=== PATIENT | female | born 1955 | race African-American/Black ===

== ENCOUNTER 2018-02-11 18:10 | Inpatient (IN) | payer MEDICARE, OTHER ==
[~2018-02-11] VITALS: Ht 154.9 cm; Wt 74.4 kg
[~2018-02-11 18:10] MED LIST: AMLO10TA55 PO; ASPI-556 PO; CARV12.530 PO; CHOL10002 PO; GLIM4 PO; HYDR12.530 PO; LISI40TA4 PO; METF1000 PO
[2018-02-11 18:30] VITALS: BP 157/90
[2018-02-11] MEDS ORDERED: DOCUSATE SODIUM 283 MG/5 ML MINI-ENEMA PR PRN (19:15)
[2018-02-11] MEDS ORDERED: DEXTROSE 50%-WATER 25 GM/50 ML SYRINGE IVP PRN (19:15)
[2018-02-11] MEDS ORDERED: HydrOXYzine HCL 25 MG TABLET PO PRN (19:15)
[2018-02-11] MEDS: METOPROLOL SUCCINATE 50 MG ER TABLET PO SCH (21:50)
[2018-02-11] MEDS: FAMOTIDINE 20 MG TABLET PO SCH (21:51)
[2018-02-11] MEDS: SENNA 187 MG TABLET PO SCH (21:51)
[2018-02-11] MEDS: GABAPENTIN 300 MG CAPSULE PO SCH (21:51)
[2018-02-11] MEDS: DOCUSATE SODIUM 100 MG CAPSULE PO SCH (21:51)
[2018-02-11] MEDS: INSULIN LISPRO 100 UNITS/ML SQ PRN (21:53)
[2018-02-11] MEDS: ACETAMINOPHEN 325 MG TABLET PO PRN (22:19)
[2018-02-11 22:59] LABS: GLUCOMETER DEV NAME(LOC) 2WR 2E; GLUCOSE,POINT OF CARE 238 MG/DL (70-110)
[2018-02-12] VITALS: BP 129/79
[2018-02-12 06:25] LABS: GLUCOMETER DEV NAME(LOC) 2WR 2E; GLUCOSE,POINT OF CARE 189 MG/DL (70-110)
[2018-02-12] MEDS: GlipiZIDE 10 MG TABLET PO SCH ×4 (06:41→17:51)
[2018-02-12 07:11] LABS: BASOPHILS % (AUTO) 0.4 % (0.0-2.0); EOSINOPHILS % (AUTO) 2.5 % (1.0-6.0); HEMOGLOBIN 15.4 g/dL (12.0-16.0); LYMPHOCYTES # (AUTO) 3.9 K/uL (1.0-4.8); LYMPHOCYTES % (AUTO) 39.6 % (22.0-44.0); MEAN CORPUSCULAR HEMOGLOBIN 32.1 pg (26.0-34.0); MEAN CORPUSCULAR HGB CONC 35.9 G/dL (31.0-37.0); MEAN CORPUSCULAR VOLUME 89 fL (80-100); MONOCYTES # (AUTO) 0.6 K/uL (0.1-1.0); MONOCYTES % (AUTO) 6.1 % (2.0-9.0); NEUTROPHILS # (AUTO) 5.1 K/uL (1.8-7.7); NEUTROPHILS % (AUTO) 51.4 % (40.0-70.0); PLATELET COUNT (AUTO) 284 K/uL (150-450); RED BLOOD CELL COUNT(AUTO) 4.81 MIL/uL (4.00-5.20); RED CELL DISTRIBUTION WIDTH 12.5 % (11.5-14.5)
[2018-02-12 07:37] LABS: ALANINE AMINOTRANSFERASE 27 U/L (12-78); ALBUMIN 3.2 g/dL (3.4-5.0); ALKALINE PHOSPHATASE 115 U/L (46-116); ANION GAP 6 mmol/L (8-16); ASPARTATE AMINOTRANSFERASE 39 U/L (15-37); BILIRUBIN,TOTAL 0.7 mg/dL (0.1-1.0); CARBON DIOXIDE 33 mmol/L (22-29); CHLORIDE 100 mmol/L (98-107); CREATININE 0.94 mg/dL (0.60-1.30); GLOMERULAR FILTR. RATE CALC > 60 mL/min (>60); GLUCOSE,RANDOM 190 mg/dL (70-110); POTASSIUM 3.3 mmol/L (3.5-5.1); SODIUM SERUM 139 mmol/L (136-145); TOTAL PROTEIN, SERUM 7.3 g/dL (6.4-8.2); UREA NITROGEN, BLOOD 20 mg/dL (7-18)
[2018-02-12 07:45] VITALS: BP 154/89
[2018-02-12] MEDS: FAMOTIDINE 20 MG TABLET PO SCH ×2 (08:43→20:27)
[2018-02-12] MEDS: DOCUSATE SODIUM 100 MG CAPSULE PO SCH ×2 (08:43→20:27)
[2018-02-12] MEDS: AmLODIPine BESYLATE 10 MG TABLET PO SCH (08:44)
[2018-02-12] MEDS: LOSARTAN POTASSIUM 50 MG TABLET PO SCH (08:44)
[2018-02-12] MEDS: METOPROLOL SUCCINATE 50 MG ER TABLET PO SCH ×2 (08:44→20:27)
[2018-02-12] MEDS: INSULIN LISPRO 100 UNITS/ML SQ PRN ×4 (08:46→21:43)
[2018-02-12] MEDS: HYDROCHLOROTHIAZIDE 25 MG TABLET PO SCH (08:46)
[2018-02-12] MEDS: CALCIUM OYSTER SHELL 250 MG-VIT D3 125 UNITS TABLET PO SCH (08:46)
[2018-02-12 11:15] LABS: APPEARANCE,URINE CLEAR (CLEAR); BILIRUBIN,URINE NEGATIVE (NEGATIVE); GLUCOSE, URINE (UA) NEGATIVE (NEGATIVE); KETONES,URINE NEGATIVE (NEGATIVE); LEUKOCYTE ESTERASE ,URINE NEGATIVE (NEGATIVE); NITRATE,URINE NEGATIVE (NEGATIVE); OCCULT BLOOD,URINE NEGATIVE (NEGATIVE); PROTEIN,URINE NEGATIVE (NEGATIVE); UROBILINOGEN,URINE 0.2 mg/dL (<=1.0)
[2018-02-12 11:58] LABS: GLUCOMETER DEV NAME(LOC) 2WR 1C; GLUCOSE,POINT OF CARE 313 MG/DL (70-110)
[2018-02-12 12:41] VITALS: BP 139/89
[2018-02-12] MEDS ORDERED: POTASSIUM CHLORIDE 10% 40 MEQ/30 ML LIQUID UDCUP PO ONE (13:00)
[2018-02-12] MEDS ORDERED: POTASSIUM CHLORIDE 20 MEQ ER TABLET PO ONE ×2 (13:00→21:00)
[2018-02-12 15:13] VITALS: BP 125/74
[2018-02-12] MEDS: INSULIN LISPRO 100 UNITS/ML SQ SCH (17:52)
[2018-02-12 19:03] LABS: GLUCOMETER DEV NAME(LOC) 2WR 1C; GLUCOSE,POINT OF CARE 248 MG/DL (70-110)
[2018-02-12 20:17] VITALS: BP 156/95
[2018-02-12] MEDS: FLUTICASONE PROPIONATE 50 MCG/SPRAY 16 GM NASAL SPRAY NASAL SCH (20:27)
[2018-02-12] MEDS: GABAPENTIN 300 MG CAPSULE PO SCH (20:27)
[2018-02-12] MEDS: ATORVASTATIN CALCIUM 10 MG TABLET PO SCH (20:27)
[2018-02-12] MEDS: SENNA 187 MG TABLET PO SCH (20:27)
[2018-02-12 22:43] LABS: GLUCOMETER DEV NAME(LOC) 2WR 1C; GLUCOSE,POINT OF CARE 240 MG/DL (70-110)
[2018-02-13 00:18] VITALS: BP 156/83
[2018-02-13 06:28] LABS: GLUCOMETER DEV NAME(LOC) 2WR 1C; GLUCOSE,POINT OF CARE 186 MG/DL (70-110)
[2018-02-13 06:47] LABS: ANION GAP 5 mmol/L (8-16); CALCIUM, TOTAL 9.8 mg/dL (8.8-10.5); CARBON DIOXIDE 33 mmol/L (22-29); CHLORIDE 99 mmol/L (98-107); GLOMERULAR FILTR. RATE CALC > 60 mL/min (>60); POTASSIUM 3.5 mmol/L (3.5-5.1); SODIUM SERUM 137 mmol/L (136-145); UREA NITROGEN, BLOOD 18 mg/dL (7-18)
[2018-02-13 06:54] LABS: GLUCOSE,RANDOM 183 mg/dL (70-110)
[2018-02-13 07:46] VITALS: BP 140/90
[2018-02-13] MEDS: FLUTICASONE PROPIONATE 50 MCG/SPRAY 16 GM NASAL SPRAY NASAL SCH ×2 (08:04→20:08)
[2018-02-13] MEDS: CALCIUM OYSTER SHELL 250 MG-VIT D3 125 UNITS TABLET PO SCH (08:05)
[2018-02-13] MEDS: METOPROLOL SUCCINATE 50 MG ER TABLET PO SCH ×2 (08:05→20:09)
[2018-02-13] MEDS: AmLODIPine BESYLATE 10 MG TABLET PO SCH (08:06)
[2018-02-13] MEDS: GlipiZIDE 10 MG TABLET PO SCH (08:07)
[2018-02-13] MEDS: LOSARTAN POTASSIUM 50 MG TABLET PO SCH (08:07)
[2018-02-13] MEDS: FAMOTIDINE 20 MG TABLET PO SCH ×2 (08:07→20:08)
[2018-02-13] MEDS: POTASSIUM CHLORIDE 20 MEQ ER TABLET PO SCH (08:07)
[2018-02-13] MEDS: HYDROCHLOROTHIAZIDE 25 MG TABLET PO SCH (08:08)
[2018-02-13] MEDS: DOCUSATE SODIUM 100 MG CAPSULE PO SCH ×2 (08:13→20:08)
[2018-02-13] MEDS: INSULIN LISPRO 100 UNITS/ML SQ SCH ×3 (08:17→17:58)
[2018-02-13] MEDS: INSULIN LISPRO 100 UNITS/ML SQ PRN ×3 (08:18→20:15)
[2018-02-13 12:29] LABS: GLUCOMETER DEV NAME(LOC) 2WR 1C; GLUCOSE,POINT OF CARE 293 MG/DL (70-110)
[2018-02-13 15:27] VITALS: BP 116/62
[2018-02-13 17:34] LABS: GLUCOMETER DEV NAME(LOC) 2WR 2E; GLUCOSE,POINT OF CARE 121 MG/DL (70-110)
[2018-02-13 20:05] VITALS: BP 135/70
[2018-02-13] MEDS: SENNA 187 MG TABLET PO SCH (20:08)
[2018-02-13] MEDS: GABAPENTIN 300 MG CAPSULE PO SCH (20:08)
[2018-02-13] MEDS: ATORVASTATIN CALCIUM 10 MG TABLET PO SCH (20:08)
[2018-02-13] MEDS ORDERED: INSULIN GLARGINE,HUM.REC.ANLOG 100 UNITS/ML SQ SCH (21:00)
[2018-02-13 21:08] LABS: GLUCOMETER DEV NAME(LOC) 2WR 2E; GLUCOSE,POINT OF CARE 180 MG/DL (70-110)
[2018-02-13] MEDS: ACETAMINOPHEN 325 MG TABLET PO PRN (21:36)
[2018-02-14 04:00] VITALS: BP 126/72
[2018-02-14 05:53] LABS: GLUCOMETER DEV NAME(LOC) 2WR 2E; GLUCOSE,POINT OF CARE 184 MG/DL (70-110)
[2018-02-14 08:00] VITALS: BP 138/84
[2018-02-14] MEDS: FLUTICASONE PROPIONATE 50 MCG/SPRAY 16 GM NASAL SPRAY NASAL SCH ×2 (08:09→20:07)
[2018-02-14] MEDS: AmLODIPine BESYLATE 10 MG TABLET PO SCH (08:10)
[2018-02-14] MEDS: LOSARTAN POTASSIUM 50 MG TABLET PO SCH (08:10)
[2018-02-14] MEDS: DOCUSATE SODIUM 100 MG CAPSULE PO SCH ×2 (08:10→20:07)
[2018-02-14] MEDS: HYDROCHLOROTHIAZIDE 25 MG TABLET PO SCH (08:10)
[2018-02-14] MEDS: POTASSIUM CHLORIDE 20 MEQ ER TABLET PO SCH (08:11)
[2018-02-14] MEDS: METOPROLOL SUCCINATE 50 MG ER TABLET PO SCH ×2 (08:11→20:07)
[2018-02-14] MEDS: CALCIUM OYSTER SHELL 250 MG-VIT D3 125 UNITS TABLET PO SCH (08:11)
[2018-02-14] MEDS: INSULIN LISPRO 100 UNITS/ML SQ SCH ×3 (08:15→18:18)
[2018-02-14] MEDS: INSULIN LISPRO 100 UNITS/ML SQ PRN ×3 (08:16→18:20)
[2018-02-14] MEDS: FAMOTIDINE 20 MG TABLET PO SCH ×2 (08:16→20:07)
[2018-02-14 12:48] LABS: GLUCOMETER DEV NAME(LOC) 2WR 1C; GLUCOSE,POINT OF CARE 206 MG/DL (70-110)
[2018-02-14 15:09] VITALS: BP 128/84
[2018-02-14 17:53] LABS: GLUCOMETER DEV NAME(LOC) 2WR 2E; GLUCOSE,POINT OF CARE 152 MG/DL (70-110)
[2018-02-14 20:07] VITALS: BP 154/81
[2018-02-14] MEDS: GABAPENTIN 300 MG CAPSULE PO SCH (20:07)
[2018-02-14] MEDS: ATORVASTATIN CALCIUM 10 MG TABLET PO SCH (20:07)
[2018-02-14] MEDS: SENNA 187 MG TABLET PO SCH (20:07)
[2018-02-14] MEDS: ACETAMINOPHEN 325 MG TABLET PO PRN (20:07)
[2018-02-14] MEDS: INSULIN GLARGINE,HUM.REC.ANLOG 100 UNITS/ML SQ SCH (21:37)
[2018-02-14 21:58] LABS: GLUCOMETER DEV NAME(LOC) 2WR 2E; GLUCOSE,POINT OF CARE 129 MG/DL (70-110)
[2018-02-14 22:07] VITALS: BP 154/87
[2018-02-15] VITALS: BP 138/74
[2018-02-15 05:53] LABS: GLUCOMETER DEV NAME(LOC) 2WR 2E; GLUCOSE,POINT OF CARE 195 MG/DL (70-110)
[2018-02-15] MEDS ORDERED: HYD25 PO (06:51)
[2018-02-15] MEDS ORDERED: AMLO10TA55 PO (06:51)
[2018-02-15] MEDS ORDERED: CALC-1220 PO (06:51)
[2018-02-15] MEDS ORDERED: LOSA1TAB37 PO (06:51)
[2018-02-15] MEDS ORDERED: METO50 PO (06:51)
[2018-02-15] MEDS ORDERED: GLIP10 PO (06:51)
[2018-02-15] MEDS ORDERED: ASPI1CPM6 PO (06:51)
[2018-02-15] MEDS ORDERED: SIMV-260 PO (06:51)
[2018-02-15 07:45] VITALS: BP 129/79
[2018-02-15] MEDS: FLUTICASONE PROPIONATE 50 MCG/SPRAY 16 GM NASAL SPRAY NASAL SCH ×2 (08:18→22:15)
[2018-02-15] MEDS: DOCUSATE SODIUM 100 MG CAPSULE PO SCH ×2 (08:19→21:00)
[2018-02-15] MEDS: AmLODIPine BESYLATE 10 MG TABLET PO SCH (08:19)
[2018-02-15] MEDS: HYDROCHLOROTHIAZIDE 25 MG TABLET PO SCH (08:19)
[2018-02-15] MEDS: POTASSIUM CHLORIDE 20 MEQ ER TABLET PO SCH (08:19)
[2018-02-15] MEDS: LOSARTAN POTASSIUM 50 MG TABLET PO SCH (08:19)
[2018-02-15] MEDS: CALCIUM OYSTER SHELL 250 MG-VIT D3 125 UNITS TABLET PO SCH (08:19)
[2018-02-15] MEDS: FAMOTIDINE 20 MG TABLET PO SCH ×2 (08:20→22:15)
[2018-02-15] MEDS: METOPROLOL SUCCINATE 50 MG ER TABLET PO SCH ×2 (08:20→22:15)
[2018-02-15] MEDS: INSULIN LISPRO 100 UNITS/ML SQ SCH ×3 (08:23→17:00)
[2018-02-15] MEDS: INSULIN LISPRO 100 UNITS/ML SQ PRN ×3 (08:23→22:17)
[2018-02-15 13:33] LABS: GLUCOMETER DEV NAME(LOC) 2WR 2E; GLUCOSE,POINT OF CARE 249 MG/DL (70-110)
[2018-02-15 16:01] VITALS: BP 134/76
[2018-02-15] MEDS ORDERED: LORazepam 2 MG/ML VIAL IM ONE (16:45)
[2018-02-15] MEDS ORDERED: LORazepam 2 MG/ML VIAL IM PRN (16:45)
[2018-02-15] MEDS ORDERED: LORazepam 2 MG/ML VIAL ONE (16:46)
[2018-02-15 17:58] LABS: GLUCOMETER DEV NAME(LOC) 2WR 2E; GLUCOSE,POINT OF CARE 172 MG/DL (70-110)
[2018-02-15] MEDS: SENNA 187 MG TABLET PO SCH (21:00)
[2018-02-15 22:09] VITALS: BP 148/59
[2018-02-15] MEDS: GABAPENTIN 300 MG CAPSULE PO SCH (22:15)
[2018-02-15] MEDS: ATORVASTATIN CALCIUM 10 MG TABLET PO SCH (22:15)
[2018-02-15] MEDS: INSULIN GLARGINE,HUM.REC.ANLOG 100 UNITS/ML SQ SCH (22:17)
[2018-02-15 23:28] LABS: GLUCOMETER DEV NAME(LOC) 2WR 1C; GLUCOSE,POINT OF CARE 240 MG/DL (70-110)
[2018-02-16] MEDS ORDERED: LORazepam 2 MG/ML VIAL IM PRN (00:45)
[2018-02-16 06:20] VITALS: BP 139/84
[2018-02-16 06:53] LABS: GLUCOMETER DEV NAME(LOC) 2WR 1C; GLUCOSE,POINT OF CARE 184 MG/DL (70-110)
[2018-02-16 09:45] VITALS: BP 153/97
[2018-02-16] MEDS: FLUTICASONE PROPIONATE 50 MCG/SPRAY 16 GM NASAL SPRAY NASAL SCH ×2 (09:51→20:55)
[2018-02-16] MEDS: CALCIUM OYSTER SHELL 250 MG-VIT D3 125 UNITS TABLET PO SCH (09:51)
[2018-02-16] MEDS: AmLODIPine BESYLATE 10 MG TABLET PO SCH (09:51)
[2018-02-16] MEDS: FAMOTIDINE 20 MG TABLET PO SCH ×2 (09:51→20:56)
[2018-02-16] MEDS: DOCUSATE SODIUM 100 MG CAPSULE PO SCH ×2 (09:51→20:55)
[2018-02-16] MEDS: HYDROCHLOROTHIAZIDE 25 MG TABLET PO SCH (09:51)
[2018-02-16] MEDS: POTASSIUM CHLORIDE 20 MEQ ER TABLET PO SCH (09:51)
[2018-02-16] MEDS: METOPROLOL SUCCINATE 50 MG ER TABLET PO SCH ×2 (09:52→20:55)
[2018-02-16] MEDS: LOSARTAN POTASSIUM 50 MG TABLET PO SCH (09:52)
[2018-02-16] MEDS: INSULIN LISPRO 100 UNITS/ML SQ SCH ×3 (09:54→17:42)
[2018-02-16] MEDS: INSULIN LISPRO 100 UNITS/ML SQ PRN ×4 (09:55→21:08)
[2018-02-16 13:03] LABS: GLUCOMETER DEV NAME(LOC) 2WR 2E; GLUCOSE,POINT OF CARE 226 MG/DL (70-110)
[2018-02-16] MEDS: ACETAMINOPHEN 325 MG TABLET PO PRN (13:21)
[2018-02-16 15:15] VITALS: BP 140/83
[2018-02-16 20:46] VITALS: BP 157/83
[2018-02-16] MEDS: GABAPENTIN 300 MG CAPSULE PO SCH (20:55)
[2018-02-16] MEDS: SENNA 187 MG TABLET PO SCH (20:55)
[2018-02-16] MEDS: ATORVASTATIN CALCIUM 10 MG TABLET PO SCH (20:55)
[2018-02-16] MEDS ORDERED: INSULIN GLARGINE,HUM.REC.ANLOG 100 UNITS/ML SQ SCH (21:00)
[2018-02-16] MEDS ORDERED: MELATONIN 3 MG TABLET PO SCH (21:00)
[2018-02-16 22:33] LABS: GLUCOMETER DEV NAME(LOC) 2WR 2E; GLUCOSE,POINT OF CARE 148 MG/DL (70-110)
[2018-02-16 22:33] LABS: GLUCOMETER DEV NAME(LOC) 2WR 2E; GLUCOSE,POINT OF CARE 247 MG/DL (70-110)
[2018-02-17 00:37] VITALS: BP 148/81
[2018-02-17 08:01] VITALS: BP 154/89
[2018-02-17] MEDS: FLUTICASONE PROPIONATE 50 MCG/SPRAY 16 GM NASAL SPRAY NASAL SCH (09:04)
[2018-02-17] MEDS: DOCUSATE SODIUM 100 MG CAPSULE PO SCH (09:04)
[2018-02-17] MEDS: METOPROLOL SUCCINATE 50 MG ER TABLET PO SCH (09:04)
[2018-02-17] MEDS: HYDROCHLOROTHIAZIDE 25 MG TABLET PO SCH (09:05)
[2018-02-17] MEDS: FAMOTIDINE 20 MG TABLET PO SCH (09:05)
[2018-02-17] MEDS: LOSARTAN POTASSIUM 50 MG TABLET PO SCH (09:05)
[2018-02-17] MEDS: CALCIUM OYSTER SHELL 250 MG-VIT D3 125 UNITS TABLET PO SCH (09:05)
[2018-02-17] MEDS: AmLODIPine BESYLATE 10 MG TABLET PO SCH (09:05)
[2018-02-17] MEDS: POTASSIUM CHLORIDE 20 MEQ ER TABLET PO SCH (09:07)
[2018-02-17] MEDS: INSULIN LISPRO 100 UNITS/ML SQ SCH ×2 (09:08→13:40)
[2018-02-17] MEDS: INSULIN LISPRO 100 UNITS/ML SQ PRN (09:09)
[2018-02-17] MEDS ORDERED: FLUT16H NASAL (12:00)
[2018-02-17] MEDS ORDERED: DSS100 PO (12:01)
[2018-02-17] MEDS ORDERED: LOSA50TA25 PO (12:02)
[2018-02-17] MEDS ORDERED: KDUR20 PO (12:02)
[2018-02-17] MEDS ORDERED: AMLO-512 PO (12:03)
[2018-02-17] MEDS ORDERED: HYDR25TA PO (12:04)
[2018-02-17] MEDS ORDERED: OSCD250 PO (12:05)
[2018-02-17] MEDS ORDERED: FAMO20 PO (12:29)
[2018-02-17] MEDS ORDERED: MELA3TAB PO (12:34)
[2018-02-17] MEDS ORDERED: GABA-531 PO (12:35)
[2018-02-17] MEDS ORDERED: INSLAN SQ (12:36)
[2018-02-17] MEDS ORDERED: ATOR10TA84 PO (12:36)
[2018-02-17] MEDS ORDERED: INSU100V SQ ×2 (12:37→12:38)
[2018-02-17 13:33] LABS: GLUCOMETER DEV NAME(LOC) 2WR 1C; GLUCOSE,POINT OF CARE 220 MG/DL (70-110)
== END 2018-02-17 13:25 | disposition home health service (06) | DRG 65 ==
LOC: 2WR 18:10
DX: I61.1 Nontraumatic intracerebral hemorrhage in hemisphere, cortical (principal); I16.1 Hypertensive emergency; E11.9 Type 2 diabetes mellitus without complications; E66.9 Obesity, unspecified; I10 Essential (primary) hypertension; Z90.49 Acquired absence of other specified parts of digestive tract; Z91.14 Patient's other noncompliance with medication regimen; Z68.31 Body mass index [BMI] 31.0-31.9, adult; Z79.4 Long term (current) use of insulin; Z91.81 History of falling; R26.2 Difficulty in walking, not elsewhere classified; I69.118 Other symptoms and signs involving cognitive functions following nontraumatic intracerebral hemorrhage; I69.128 Other speech and language deficits following nontraumatic intracerebral hemorrhage; H53.2 Diplopia
CPT/HCPCS: 70450; 83036; 87081; 92507; 92508; 92523; 97110; 97112; 97116; 97162; 97166; 97530; 97535; 99366; J1815; J2060